=== PATIENT | female | born 1940 | race Caucasian/White ===

== ENCOUNTER → 2021-02-28 13:08 | Outpatient (BNVA) | payer OTHER, SELFPAY | PROVIDERS: PCP Nurse Practitioner Family; Referring Provider Nurse Practitioner Family; Visit Provider Physician Assistant ==

== ENCOUNTER → 2021-03-23 07:08 | Outpatient (BNVA) | payer OTHER, SELFPAY | PROVIDERS: PCP Nurse Practitioner Family; Visit Provider Surgery ==

== ENCOUNTER → 2021-05-02 08:05 | Outpatient (BNVA) | payer OTHER, SELFPAY | PROVIDERS: PCP Nurse Practitioner Family; Visit Provider Surgery | DX: E66.9 Obesity, unspecified (principal); E78.5 Hyperlipidemia, unspecified; I10 Essential (primary) hypertension; G47.30 Sleep apnea, unspecified; K21.9 Gastro-esophageal reflux disease without esophagitis; E11.9 Type 2 diabetes mellitus without complications; Z68.34 Body mass index [BMI] 34.0-34.9, adult | CPT/HCPCS: Q3014 ==

== ENCOUNTER 2021-05-03 10:24 | Outpatient (REF) | payer OTHER, SELFPAY ==
--- NOTE | ~2021-05-03 | XR_ITS ---
EXAMINATION: XR CHEST CLINICAL INFORMATION: Obesity. COMPARISON: None TECHNIQUE: 2 views of the chest were obtained. FINDINGS: Diffuse interstitial prominence with patchy bilateral airspace opacities. No pleural effusion or pneumothorax. Unremarkable cardiomediastinal silhouette. No acute osseous abnormality. XR/XR chest 2V IMPRESSION: Interstitial prominence with patchy bilateral airspace opacities. Findings can be seen in setting of an infectious or inflammatory process, including multifocal pneumonia. Alternatively, findings could represent chronic interstitial lung disease.
--- NOTE | 2021-05-03 10:33 | ECG_ITS ---
Test Reason : obesity Blood Pressure : / mmHG Vent. Rate : 060 BPM Atrial Rate : 060 BPM P-R Int : 210 ms QRS Dur : 090 ms QT Int : 430 ms P-R-T Axes : 051 -30 024 degrees QTc Int : 430 ms Sinus rhythm with 1st degree A-V block Left axis deviation Minimal voltage criteria for LVH, may be normal variant ( Danie product ) Abnormal ECG No previous ECGs available Referred By: Raphael Ramirez Electronically Signed By:ZACH SUE MD
[2021-05-03 10:51] LABS: MANUAL DIFF FLAG NO
[2021-05-03 11:25] LABS: Basophils Percent Auto 0.3 % (0-2); Eosinophils Absolute Auto 0.4 X10*3/uL (0.0-0.4); Hematocrit 39.9 % (37-47); Hemoglobin 12.8 g/dl (12.0-16.0); Imm Gran Abs Auto 0.03 X10*3/uL (0.00-0.03); Imm Gran Pct Auto 0.4 % (0.0-0.4); Lymphocytes Absolute Auto 2.3 X10*3/uL (1.2-4.9); Lymphocytes Percent Auto 31.1 % (20-40); Mean Corpuscular HGB Conc 32.1 g/dl (31.0-35.0); Mean Corpuscular Hemoglobin 27.7 pg (27.0-33.0); Mean Corpuscular Volume 86.4 fL (80-98); Mean Platelet Volume 8.8 fL (9.4-12.3); Monocytes Absolute Auto 0.7 X10*3/uL (0.1-1.2); Monocytes Percent Auto 10.2 % (2-11); Neutrophils Absolute Auto 3.9 X10*3/uL (2.0-8.3); Platelet Count 257 X10*3/uL (160-400); Red Blood Count 4.62 X10*6/uL (4.20-5.50); White Blood Count 7.3 X10*3/uL (4.8-10.8)
[2021-05-03 11:37] LABS: Alanine Aminotransferase 19 U/L (0-31); Albumin Level 4.2 g/dL (3.5-5.0); Alkaline Phosphatase 101 U/L (39-117); Anion Gap 12 (12-20); Aspartate Amino Transferase 16 U/L (5-31); Bilirubin Total 0.5 mg/dL (0.0-1.0); Blood Urea Nitrogen 19 mg/dL (9-16); C Reactive Protein 0.48 mg/dL (< or = 0.50); Calcium 10.3 mg/dL (8.4-10.2); Carbon Dioxide 30 mmol/L (22-29); Chloride 103 mmol/L (96-108); Cholesterol 206 mg/dL; Estimated Glomerular Filt Rate > 60; Glucose Random 160 mg/dL (60-115); HDL Cholesterol 36 mg/dL; Iron 83 mcg/dL (30-160); LDL Cholesterol Calculated 123 mg/dl; Percent Iron Saturation 20 % (15-50); Potassium 4.4 mmol/L (3.3-5.1); Sodium 141 mmol/L (135-145); Total Iron Binding Capacity 425 mcg/dL (228-428); Total Protein 6.9 g/dL (6.5-8.0); Triglycerides 235 mg/dL; Unsaturated Iron Binding 342 ug/dL
[2021-05-03 11:41] LABS: Estimated Average Glucose 203 mg/dL; Hemoglobin A1c % 8.7 %
[2021-05-03 12:02] LABS: Ferritin 19 ng/mL (10-250); Insulin 10 uU/mL (2-29); TSH reflex Free T4 1.99 uIU/mL (0.32-4.0); Vitamin D 25-OH Total 57.9 ng/mL (>30)
[2021-05-03 12:23] LABS: Folate 11.1 ng/mL (> or = 4.0); Vitamin B12 386 pg/mL (200-900)
[2021-05-04 15:51] LABS: Calcium (PTHI) 10.1 mg/dL (8.6-10.4); PTHI 44 pg/mL (14-64)
[2021-05-08 05:16] LABS: Zinc 77 mcg/dL (60-130)
[2021-05-09 01:02] LABS: Vitamin A 44 mcg/dL (38-98)
[2021-05-09 15:12] LABS: Vitamin B1 16 nmol/L (8-30)
== END 2021-05-03 10:25 | disposition home or self-care (01) ==
LOC: HO.XRAY 10:24
PROVIDERS: PCP Nurse Practitioner Family; Visit Provider Surgery
DX: E11.9 Type 2 diabetes mellitus without complications (principal); E78.5 Hyperlipidemia, unspecified; G47.30 Sleep apnea, unspecified; I10 Essential (primary) hypertension; K21.9 Gastro-esophageal reflux disease without esophagitis; E66.9 Obesity, unspecified; Z68.34 Body mass index [BMI] 34.0-34.9, adult
CPT/HCPCS: 36415; 71046; 80053; 80061; 82306; 82607; 82728; 82746; 83036; 83525; 83540; 83970; 84425; 84443; 84590; 84630; 85025; 86140; 93005

== ENCOUNTER → 2021-05-15 12:26 | Outpatient (BNVA) | payer OTHER, SELFPAY | PROVIDERS: PCP Nurse Practitioner Family; Visit Provider Dietitian, Registered | DX: E66.9 Obesity, unspecified (principal); Z68.34 Body mass index [BMI] 34.0-34.9, adult | CPT/HCPCS: 97802 ==

== ENCOUNTER 2021-05-23 13:01 | Outpatient (REF) | payer OTHER, SELFPAY ==
[2021-05-24 15:24] LABS: H Pylori Breath Test Negative (Negative)
== END 2021-05-23 13:02 | disposition home or self-care (01) ==
LOC: HO.LNP 13:01
PROVIDERS: Surgery; PCP Nurse Practitioner Family; Visit Provider Physician Assistant Surgical
DX: E11.9 Type 2 diabetes mellitus without complications (principal); Z68.34 Body mass index [BMI] 34.0-34.9, adult; E78.5 Hyperlipidemia, unspecified; G47.30 Sleep apnea, unspecified; I10 Essential (primary) hypertension; K21.9 Gastro-esophageal reflux disease without esophagitis; E66.9 Obesity, unspecified
CPT/HCPCS: 83013; 99211

== ENCOUNTER → 2021-06-01 13:09 | Outpatient (BNVA) | payer OTHER, SELFPAY | PROVIDERS: PCP Nurse Practitioner Family; Visit Provider Surgery | DX: R94.31 Abnormal electrocardiogram [ECG] [EKG] (principal); E66.9 Obesity, unspecified; E11.9 Type 2 diabetes mellitus without complications; I10 Essential (primary) hypertension; E78.5 Hyperlipidemia, unspecified; E53.8 Deficiency of other specified B group vitamins; Z68.34 Body mass index [BMI] 34.0-34.9, adult; Z87.891 Personal history of nicotine dependence; Z90.49 Acquired absence of other specified parts of digestive tract; Z88.8 Allergy status to other drugs, medicaments and biological substances; Z99.89 Dependence on other enabling machines and devices; Z79.84 Long term (current) use of oral hypoglycemic drugs; Z79.899 Other long term (current) drug therapy; Z71.3 Dietary counseling and surveillance | CPT/HCPCS: 99212 ==

== ENCOUNTER 2021-06-06 09:23 | Outpatient (REF) | payer OTHER, SELFPAY ==
--- NOTE | ~2021-06-06 | FL_ITS ---
EXAMINATION: XR GI SERIES CLINICAL INFORMATION: Obesity. Preop. COMPARISON: None. TECHNIQUE: Routine upper GI air-contrast study was performed in upright and lying positions. FINDINGS: Following oral administration of thick barium and effervescent granules, there is normal propagation of bolus from the oral cavity through the pharynx and esophagus and into the stomach without any evidence of obstruction, narrowing or stricture. On placing patient supine and prone lying, the course, caliber and peristalsis of the stomach and the duodenum are normal. The mucosal pattern of the stomach and duodenum is normal. Incidental note is made of a moderate-sized duodenal diverticulum, third segment. No gastroesophageal reflux or hiatal hernia seen. FLUOROSCOPY TIME: 1.4 minutes. DOSE AREA PRODUCT: 29.557 uGy-m2 (microgray-meter squared). FL/FL upper GI series IMPRESSION: Unremarkable upper GI air-contrast study except for lbzvl-[id number]-nicwtlzy-sized duodenal diverticulum.
--- NOTE | ~2021-06-06 | US_ITS ---
EXAMINATION: US COMPLETE ABDOMEN WITH LIVER ELASTOGRAPHY CLINICAL INFORMATION: Obesity. COMPARISON: None. TECHNIQUE: Real-time imaging of the abdominal viscera. Noninvasive ultrasound liver fibrosis assessment is performed using Macarena ElastPQ point quantification shear wave elastography (pSWE) with a C5-2 MHz transducer. Multiple elastography samples are obtained. FINDINGS: PANCREAS: The visualized pancreatic head and body are normal in appearance. The remainder of the pancreas is obscured from visualization by the overlying bowel gas. ABDOMINAL AORTA: The proximal, middle, and distal aortic segments are normal in caliber. INFERIOR VENA CAVA: Visualized portions are normal. LIVER: The liver demonstrates normal size, contour and increased echogenicity. No focal lesion or intrahepatic biliary duct dilatation. The right lobe measures 14.6 cm in length. The left lobe measures 13.0 cm in length. Portal flow is hepatopedal. Shear wave liver elastography median stiffness is 1.86 m/s (reference: normal median stiffness is 1.3 m/s or less). IQR/median stiffness to assess sampling precision is 0.16 (reference: good quality data set is IQR/median stiffness of 0.15 or less). GALLBLADDER: Normal. The gallbladder is physiologically distended without evidence of stones, sludge, polyps, wall thickening or pericholecystic fluid. COMMON BILE DUCT: Normal in caliber measuring 0.9 cm in diameter. RIGHT KIDNEY: Normal. No hydronephrosis. No renal calculi or focal parenchymal lesions. The kidney measures 10.5 cm in maximum dimension. LEFT KIDNEY: There is an anechoic cyst in lower pole measuring 0.9 x 0.7 x 0.6 cm. No hydronephrosis. No renal calculi or focal parenchymal lesions. The kidney measures 10.6 cm in maximum dimension. SPLEEN: Normal. The spleen measures 9.2 cm in maximum dimension. FREE FLUID: None. US/US abdomen comp w elastography IMPRESSION: 1. Mild hepatic steatosis. Anechoic cyst lower pole left kidney. 2. 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 REFERENCE: Society of Radiologists in Ultrasound Liver Stiffness Thresholds (2019): LIVER STIFFNESS THRESHOLDS: *Liver Stiffness equal or less than 1.3 m/s: High probability of being normal. *Liver Stiffness less than 1.7 m/s: In the absence of other known clinical signs, rules out compensated advanced chronic liver disease. *Liver Stiffness 1.7-2.1 m/s: Suggestive of compensated advanced chronic liver disease but need further test for confirmation. *Liver Stiffness over 2.1 m/s: Rules in compensated advanced chronic liver disease. *Liver Stiffness over 2.4 m/s: Suggestive of clinically significant portal hypertension. QUALITY OF DATA SET: *IQR/Median value equal or less than 0.15 implies a quality data set. *IQR/Median value over 0.15 implies a poor quality data set. SIGNIFICANT CHANGE FROM PRIOR EXAM: Significant change if liver stiffness measurement is 10% or greater from prior exam. OTHER CONSIDERATIONS: The stage of liver fibrosis may be overestimated in the setting of acute hepatitis, liver inflammation, elevated liver function tests, hepatic vascular congestion, obstructive cholestasis, nonfasting state, and infiltrative diseases such as amyloidosis and lymphoma. In some patients with NAFLD, the liver stiffness thresholds for compensated advanced chronic liver disease may be lower. In causes other than viral hepatitis and NAFLD, liver stiffness thresholds are not well established.
== END 2021-06-06 09:24 | disposition home or self-care (01) ==
LOC: HO.US 09:23
PROVIDERS: PCP Nurse Practitioner Family; Visit Provider Surgery
DX: Z01.818 Encounter for other preprocedural examination (principal); E66.9 Obesity, unspecified; G47.30 Sleep apnea, unspecified; I10 Essential (primary) hypertension; E78.5 Hyperlipidemia, unspecified; K21.9 Gastro-esophageal reflux disease without esophagitis; E11.9 Type 2 diabetes mellitus without complications; Z68.34 Body mass index [BMI] 34.0-34.9, adult
CPT/HCPCS: 74240; 76705; 76981

== ENCOUNTER → 2021-06-14 09:06 | Outpatient (REF) | payer OTHER, SELFPAY ==
--- NOTE | 2021-06-14 09:09 | CA_ITS ---
Acquisition Time: 2021-06-14 09:28:25 Total Exercise Time: 00:04:39 Test Indications: ABN EKG Medications: Protocol: CHAYA Max HR: 121 BPM 86% of Pred: 140 BPM Max BP: 158/084 mmHG Max Work Load: 5.8 METS Exercise stress test with exercise 4 min 39 sec of Chaya protocol, achieving 87% MPHR, with moderate shortness of breath and request to stop, no chest discomfort, with isolated PVCs and ventricular cuplets during exercise, with normotensive response to exercise, without EKG changes meeting criteria for ischmia. In recovery her sob resolved. Test reviewed with Dr Calvo. Referred By: Raphael Ramirez Overread By: MICHAEL FERREIRA
== END ==
LOC: HO.CARD 09:06
PROVIDERS: Visit Provider Surgery
DX: R93.89 Abnormal findings on diagnostic imaging of other specified body structures (principal); R94.31 Abnormal electrocardiogram [ECG] [EKG]
CPT/HCPCS: 93017

== ENCOUNTER 2021-07-02 13:34 | Outpatient (REF) | payer OTHER, SELFPAY ==
[2021-07-02 15:01] LABS: Blood Urea Nitrogen 14 mg/dL (9-16); Estimated Glomerular Filt Rate 57
== END 2021-07-02 13:35 | disposition home or self-care (01) ==
LOC: HO.LAB 13:34
PROVIDERS: Visit Provider Physician Assistant
DX: K21.9 Gastro-esophageal reflux disease without esophagitis (principal)
CPT/HCPCS: 36415; 82565; 84520

== ENCOUNTER 2021-07-04 08:05 | Outpatient (REF) | payer OTHER, SELFPAY ==
--- NOTE | ~2021-07-04 | CT_ITS ---
EXAMINATION: CT CHEST WITH CONTRAST CLINICAL INFORMATION: Lung nodule seen on other imaging. Follow-up abnormal chest x-ray COMPARISON: Previous chest x-ray 05/03/2021 TECHNIQUE: Multidetector volumetric CT imaging of the chest was obtained after the administration of 65 mL of Omnipaque 350 intravenous contrast without immediate adverse reactions. Axial MIP volume rendering provided. Sagittal and coronal reformatted images were obtained. This CT examination was performed using dose optimization techniques as appropriate, variously including the following: *Automated exposure control *Adjustment of mA and/or kV according to patient size (this includes techniques or standardized protocols for targeted exams where dose is matched to indication/reason for exam; i.e. extremities or head) *Use of iterative reconstruction technique DLP: 172 mGy-cm FINDINGS: LUNGS: There is evidence of peripheral interstitial lung disease with increased peripheral reticulation, increased peripheral parenchymal attenuation and severe bronchiectasis and bronchiolectasis. This is greatest in the lingula, left lower lobe and right lower lobe. There is also some involvement of the right upper and right middle lobes and scarring and groundglass attenuation in the left upper lobe. Bronchiolectasis is a severe and is difficult to exclude some component of honeycombing. Findings are suggestive of interstitial lung disease. In particular, IPF or UIP should be considered. This appearance can also be seen with fibrotic changes following viral/Covid pneumonia. No pulmonary nodule is seen. No endobronchial or endotracheal lesion is seen. MEDIASTINUM: There may be a left thyroid nodule. There are no enlarged hilar or mediastinal lymph nodes. The heart does not appear enlarged. There is no pericardial effusion. There is coronary artery calcification. PLEURA: There is no pleural effusion. No pleural mass or thickening. AXILLA: No lymphadenopathy. UPPER ABDOMEN: There may be fatty infiltration of the liver. OSSEOUS STRUCTURES: There are degenerative changes of the spine. There is a T12 vertebral body hemangioma. CT/CT chest w con IMPRESSION: Severe interstitial lung disease. This is most suggestive of IPF/UIP. Differential would include post viral infection/Covid fibrotic changes. Fleischner guidelines were followed.
[2021-07-04] MEDS: iohexoL 350 MG/ML 100 ML INFUS..BTL IV (09:11)
== END 2021-07-04 08:06 | disposition home or self-care (01) ==
LOC: HO.CT 08:05
PROVIDERS: PCP Nurse Practitioner Family; Visit Provider Surgery
DX: R91.1 Solitary pulmonary nodule (principal)
CPT/HCPCS: 71260; Q9967

== ENCOUNTER → 2021-08-09 08:19 | Outpatient (REF) | payer OTHER, SELFPAY ==
--- NOTE | 2021-08-09 08:23 | CA_ITS ---
Transthoracic Echocardiogram Patient (Last, First, Middle): Kraine Valles, William Gender: Female Date of : 1940 Age: 81 Procedure Date: 08/09/2021 Procedure Type: Transthoracic Echocardiogram Location: OP Height: 157.48 cm Weight: 88.45 kg BSA: 1.89 m2 Heart Rate: bpm BP: 136 / 80 mmHg Linotypist: ESTRELLA Referring MD: Raphael Ramirez MD Symptoms: R93.89 - Abnormal findings on diagnostic imaging of other... Study Quality: Fair Conclusions: - 1. Normal LV systolic function with impaired relaxation filling pattern 2. Mild calcification of aortic valve with normal cardiac valvular Doppler 3. Normal RV systolic pressure 4. No gross pericardial effusion Findings Left Ventricle Normal left ventricular size, thickness, and systolic function. The visually estimated ejection fraction is between 60-65%. Spectral Doppler is indicative of an impaired relaxation filling pattern. E/E prime ratio is between 8 and 15 consistent with indeterminate filling pressures. Right Ventricle Normal right ventricular cavity size and systolic function. Atria The left atrium is likely dilated. Interatrial shunt cannot be excluded. The right atrium is normal in size. Aortic Valve There is mild calcification of the aortic valve. There is no aortic valve stenosis. There is no aortic valve regurgitation. Mitral Valve There is mild anterior and posterior mitral leaflet thickening. There is trace mitral valve regurgitation. There is no mitral valve stenosis. Pulmonic Valve The pulmonic valve was not well visualized. Tricuspid Valve Likely normal tricuspid valve structure and function. There is trace tricuspid valve regurgitation. The right ventricular systolic pressure is normal. The right ventricular systolic pressure is 19 mmHg. Normal right atrial pressure. There is no evidence of pulmonary hypertension. Great Vessels All visible segments of the aorta are normal in size. The pulmonary artery was not well visualized. Venous The inferior vena cava is normal in size and collapses greater than 50% with inspiration. Pericardium/Pleural There is no evidence of pericardial effusion. Prior Study Comparison No prior study available for comparison. Measurements 2D Linear Measurements IVSd: 1.10 0.6-0.9/0.6-1.0 cm LVIDd: 4.45 3.9-5.3/4.2-5.9 cm LVIDd Index: 2.35 2.4-3.2/2.2-3.1 cm/m2 LVIDs: 2.42 2.0-3.6 cm LVPWd: 1.10 0.7-1.1 cm Ao Root: 3.50 2.1-3.5 cm LA Diam: 3.80 2.7-3.8/3.0-4.0 cm LAIDs Index: 2.01 1.5-2.3 cm/m2 LV Mass: 214.20 67-162/88-224 g LV Mass Index: 113.33 43-95/49-115 g/m2 LVOT Diam: 2.00 3.0+(-)1.3 cm 2D Systolic Function EF 4C: 59.70 >55% EF 2C: 65.10 >55% EF BiP: 62.90 >55% Mitral Valve MV Pk E: 0.77 MV PK A: 0.95 MV Decel Time: 186.00 E/A: 0.80 E'Lateral: 9.14 E'Medial: 7.07 E/E' Med: 10.80 E/E' Lat: 8.40 PHT: 54.00 MVA PHT: 4.07 Decel Briscoe: 4.13 Aortic Valve AoV Pk Uday: 1.46 AoV Mn Uday: 0.95 AoV VTI: 0.27 AoV Pk Grad: 9.00 Aov Mn Grad: 4.00 FARRUKH Cont.VTI: 2.52 LVOT LVOT Pk Uday: 1.04 LVOT Mn Uday: 0.80 LVOT VTI: 0.21 LVOT Pk Grad: 4.00 LVOT Mn Grad: 3.00 LVOT Diam: 2.00 LVOT Area: 3.14 Diastolic Function MV Pk E: 0.77 MV Pk A: 0.95 E/A: 0.80 E'Medial: 7.07 E/E' Med: 10.80 E' Laterial: 9.14 E/E' Lat: 8.40 Right Ventricle TAPSE (mm): 1.74 TVS' Uday: 10.00 Tricuspid Valve TR Pk Uday: 1.97 TR Pk Grad: 16.00 RA Press: 3.00 RVSP: 19.00 Great Vessels Aorta Ao Root-2D: 3.50 2.0-3.7 cm Ao Asc: 3.60 2.1-3.4 cm Updated in Other Vendor System with Status of Final Leodan Rodriguez MD electronically signed on 08/10/2021 4:26:50 PM with status of Final
== END ==
LOC: HO.CARD 08:19
PROVIDERS: Visit Provider Surgery
DX: R94.31 Abnormal electrocardiogram [ECG] [EKG] (principal)
CPT/HCPCS: 93306

== ENCOUNTER 2021-08-24 08:14 | Outpatient (REF) | payer OTHER, SELFPAY ==
[2021-08-24 09:35] VITALS: O2SAT 95
[2021-08-24 09:58] LABS: ABG Refer to POC result
[2021-08-24 09:59] LABS: ABG Base Excess 3.3 mmol/L; ABG HCO3 27 mmol/L (22-26); ABG pCO2 39 mmHg (32-45); ABG pH 7.45 (7.35-7.45); ABG pO2 92 mmHg (83-108)
== END 2021-08-24 08:15 | disposition home or self-care (01) ==
LOC: HO.LAB 08:14
PROVIDERS: Visit Provider Surgery
DX: J84.9 Interstitial pulmonary disease, unspecified (principal)
CPT/HCPCS: 36600; 82803

== ENCOUNTER → 2021-09-04 14:40 | Outpatient (BNVA) | payer OTHER, SELFPAY | PROVIDERS: PCP Nurse Practitioner Family; Visit Provider Physician Assistant Surgical | DX: Z13.89 Encounter for screening for other disorder (principal) ==

== ENCOUNTER 2021-09-10 08:05 | Outpatient (REF) | payer MEDICARE, SELFPAY ==
--- NOTE | 2021-09-10 17:20 | PFT_ITS ---
FLOWS: FEV1 88% of predicted at 1.57 L. FVC 82% of predicted at 1.94 L. FEV1 to FVC ratio of 0.81. No bronchodilator response. LUNG VOLUMES: Total lung capacity 68% of predicted at 3.38 L. Residual volume 55% of predicted at 1.3 L. Slow vital capacity 82% of predicted at 2.00 L. Expiratory reserve volume 64% of predicted at 0.28 L. Diffusion capacity is moderately decreased, diffusion capacity corrects to being mildly decreased after adjustment for alveolar ventilation. IMPRESSION: Mild restrictive ventilatory defect with no bronchodilator response. Decreased expiratory reserve volume suggests extrathoracic restriction likely secondary to abdominal obesity. Decreased diffusion capacity. There was underlying restrictive ventilatory defect, suggest underlying pulmonary parenchymal disease. Clinical correlation is advised. Nolberto Mckeon MD AP/MODL / [id number]
== END 2021-09-10 08:06 | disposition home or self-care (01) ==
LOC: HO.RESP 08:05
PROVIDERS: Visit Provider Physician Assistant Surgical
DX: J84.9 Interstitial pulmonary disease, unspecified (principal)
CPT/HCPCS: 94060; 94727; 94729